=== PATIENT | male | born 1975 | race Caucasian/White ===

== ENCOUNTER 2016-08-26 06:55 | Day surgery (SDC) | payer BC ==
[~2016-08-26] VITALS: Ht 188 cm; Wt 61.2 kg
[~2016-08-26 06:55] MED LIST: B-COMPLEX W/VI1 EAC1 PO; CALCIUM ACETAT667 MG PO; COREG12.5 M1 PO; FOLIC ACID1 MG PO; HUMALOG100 UNIT/1 SC; KAYEXALATE15 GM/60 M PO; LANTUS 10100 UNITS/ SC; LASIX80 MG PO; LEXAPRO10 MG PO; NEPHRO-VITE,1 TABLET PO; NORVASC5 MG PO; OXAYDO5 MG PO; PROMETHAZINE HC25 M1 PO; PROTONIX40 MG PO; VITAMIN D22000 UNIT PO
[2016-08-26 08:02] LABS: HEMATOCRIT 26.3 % (38.0-50.0); MCH 30.4 PG (29.0-34.0); MCHC 31.9 G/DL (30.0-36.0); MCV 95.3 FL (86-99); MEAN PLAT.VOLUME 9.1 uM^3 (9.0-12.4); PLATELET COUNT 169 K/uL (156-360); RBC DIS.WIDTH-SD 47.8 % (39-53); RED BLOOD COUNT 2.76 M/uL (4.00-5.50)
[2016-08-26 08:04] VITALS: BP 109/72
[2016-08-26 08:05] VITALS: BP 109/72
[2016-08-26 08:17] LABS: ANION GAP 7 MEQ/L (2-14); CHLORIDE 99 MEQ/L (99-109); POTASSIUM 4.7 MEQ/L (3.7-5.4); SAMPLE HEMOLYSIS CHECK 0; SAMPLE ICTERIC CHECK 0; SAMPLE LIPEMIA CHECK 0; SODIUM 140 MEQ/L (136-147)
[2016-08-26 08:23] LABS: GFR ESTIMATE (CALCULATED) 11 mL/min/; GLUCOSE 229 mg/dL (70-99); UREA NITROGEN (BUN) 36 mg/dL (9-23)
[2016-08-26 08:58] LABS: METH RESISTANT S AUREUS PCR NEGATIVE (NEGATIVE); PROBE CHECK PASS; SPECIMEN PROCESSING CONTROL PASS
[2016-08-26] MEDS ORDERED: NORCO 5/3251 TABLET PO (10:32)
[2016-08-26 12:09] VITALS: BP 110/69
[2016-08-26 12:10] VITALS: BP 110/69
[2016-08-26 13:31] VITALS: BP 123/76
[2016-08-26 14:46] VITALS: BP 141/84
== END 2016-08-26 15:00 | disposition home or self-care (01) ==
LOC: SDC 06:55
PROVIDERS: Surgery
PROC: 0WHG43Z Insertion of Infusion Device into Peritoneal Cavity, Percutaneous Endoscopic Approach (ICD-10-PCS; principal; 2016-08-26)
DX: I12.0 Hypertensive chronic kidney disease with stage 5 chronic kidney disease or end stage renal disease (principal); E11.22 Type 2 diabetes mellitus with diabetic chronic kidney disease; N18.6 End stage renal disease; Z99.2 Dependence on renal dialysis; Q61.3 Polycystic kidney, unspecified; Z85.840 Personal history of malignant neoplasm of eye; Z84.1 Family history of disorders of kidney and ureter; Z82.49 Family history of ischemic heart disease and other diseases of the circulatory system; Z83.3 Family history of diabetes mellitus; Z80.9 Family history of malignant neoplasm, unspecified; Z82.3 Family history of stroke
CPT/HCPCS: 80048; 82948; 85027; 87641; 93005; C1750; J0330; J1100; J2405; J3010; S0020

== ENCOUNTER 2017-11-13 11:31 | Inpatient (IN) | payer BC ==
[~2017-11-13] VITALS: Ht 188 cm; Wt 91.9 kg
[~2017-11-13 11:31] MED LIST changes: -COREG12.5 M1 PO; +COREG25 M1 PO; +NORCO 5/3251 TABLET PO
[2017-11-13 14:41] VITALS: BP 150/95
[2017-11-13 16:46] LABS: HEMOGLOBIN 9.3 G/DL (12.5-16.6); MCH 29.9 PG (29.0-34.0); MCHC 32.1 G/DL (30.0-36.0); MCV 93.2 FL (86-99); PLATELET COUNT 184 K/uL (156-360); RBC DIS.WIDTH-CV 15.6 % (11.8-14.6); RBC DIS.WIDTH-SD 51.7 % (39-53); RED BLOOD COUNT 3.11 M/uL (4.00-5.50); WHITE BLOOD COUNT 8.2 K/uL (4.1-10.2)
[2017-11-13 16:56] LABS: CHLORIDE 94 MEQ/L (99-109); SODIUM 127 MEQ/L (136-147)
[2017-11-13 17:02] LABS: CREATININE 8.1 MG/DL (0.6-1.3); GFR ESTIMATE (CALCULATED) 8 mL/min/ (58.99-99999); GLUCOSE 189 mg/dL (70-99); UREA NITROGEN (BUN) 94 mg/dL (9-23)
[2017-11-13] MEDS ORDERED: DULOXETINE HCL60 MG PO (20:08)
[2017-11-13] MEDS ORDERED: LOSARTAN POTASS50 MG PO (20:10)
[2017-11-13] MEDS ORDERED: MODAFINIL200 MG PO (20:10)
[2017-11-13] MEDS ORDERED: CLONIDINE HCL0.1 MG PO (20:12)
[2017-11-13 22:53] VITALS: BP 160/93
[2017-11-14 05:39] LABS: HEMATOCRIT 30.6 % (38.0-50.0); HEMOGLOBIN 9.8 G/DL (12.5-16.6); MCH 29.6 PG (29.0-34.0); MCV 92.4 FL (86-99); RBC DIS.WIDTH-CV 15.6 % (11.8-14.6); RBC DIS.WIDTH-SD 51.8 % (39-53); RED BLOOD COUNT 3.31 M/uL (4.00-5.50); WHITE BLOOD COUNT 8.3 K/uL (4.1-10.2)
[2017-11-14 05:48] LABS: PLATELET COUNT 256 K/uL (156-360)
[2017-11-14 06:01] LABS: PTT 29.3 SEC (25-37)
[2017-11-14 06:29] LABS: CHLORIDE 95 MEQ/L (99-109); CREATININE 8.9 MG/DL (0.6-1.3); GFR ESTIMATE (CALCULATED) 7 mL/min/ (58.99-99999); GLUCOSE 219 mg/dL (70-99); POTASSIUM 5.3 MEQ/L (3.7-5.4); SODIUM 130 MEQ/L (136-147); UREA NITROGEN (BUN) 100 mg/dL (9-23)
[2017-11-14 07:00] VITALS: BP 140/93
[2017-11-14 11:25] VITALS: BP 169/99
[2017-11-14 15:33] VITALS: BP 140/89
[2017-11-15 07:34] LABS: CHLORIDE 94 MEQ/L (99-109); CREATININE 8.5 MG/DL (0.6-1.3); GFR ESTIMATE (CALCULATED) 7 mL/min/ (58.99-99999); GLUCOSE 115 mg/dL (70-99); PHOSPHORUS 6.6 mg/dL (2.5-4.9); POTASSIUM 4.9 MEQ/L (3.7-5.4); SODIUM 127 MEQ/L (136-147); UREA NITROGEN (BUN) 104 mg/dL (9-23)
[2017-11-15] MEDS ORDERED: CARVEDILOL25 MG PO (09:39)
[2017-11-15] MEDS ORDERED: AMLODIPINE BESY10 MG PO (09:39)
[2017-11-15] MEDS ORDERED: CLONIDINE HCL0.3 MG PO (09:39)
[2017-11-15] MEDS ORDERED: METOLAZONE5 MG PO (09:42)
[2017-11-15] MEDS ORDERED: FLORASTOR250 MG PO (09:42)
[2017-11-15] MEDS ORDERED: BACTROBAN OINTM22 GM BOTH NARES (09:43)
[2017-11-15] MEDS ORDERED: LEVEMIR100 UNIT/2 SC (09:43)
[2017-11-15 11:00] VITALS: BP 147/93
[2017-11-15] MEDS ORDERED: DICLOXACILLIN250 MG PO (12:13)
[2017-11-15 16:49] VITALS: BP 148/88
== END 2017-11-15 17:33 | disposition home or self-care (01) | DRG 981 ==
LOC: 5EAST 11:31 → ENRESERV 11:45 → 5EAST 11:47 → ENRESERV 14:15 → 5EAST 14:27
PROVIDERS: Family Medicine; Physician Assistant
PROC: 0WPG43Z Removal of Infusion Device from Peritoneal Cavity, Percutaneous Endoscopic Approach (ICD-10-PCS; principal; 2017-11-14)
PROC: 3E1M39Z Irrigation of Peritoneal Cavity using Dialysate, Percutaneous Approach (ICD-10-PCS; principal; 2017-11-14)
PROC: 0WHG43Z Insertion of Infusion Device into Peritoneal Cavity, Percutaneous Endoscopic Approach (ICD-10-PCS; principal; 2017-11-14)
DX: T85.71XA Infection and inflammatory reaction due to peritoneal dialysis catheter, initial encounter (principal); J15.9 Unspecified bacterial pneumonia; Y83.8 Other surgical procedures as the cause of abnormal reaction of the patient, or of later complication, without mention of misadventure at the time of the procedure; Z99.2 Dependence on renal dialysis; N18.6 End stage renal disease; Q61.3 Polycystic kidney, unspecified; B95.61 Methicillin susceptible Staphylococcus aureus infection as the cause of diseases classified elsewhere; E11.22 Type 2 diabetes mellitus with diabetic chronic kidney disease; E78.5 Hyperlipidemia, unspecified; L02.213 Cutaneous abscess of chest wall; I12.0 Hypertensive chronic kidney disease with stage 5 chronic kidney disease or end stage renal disease; D63.8 Anemia in other chronic diseases classified elsewhere; E87.1 Hypo-osmolality and hyponatremia; N25.81 Secondary hyperparathyroidism of renal origin; Z87.01 Personal history of pneumonia (recurrent); Z79.4 Long term (current) use of insulin
CPT/HCPCS: 80048; 82948; 84100; 85027; 85610; 85730; 87070; 87075; 87077; 87147; 87186; 87205; 93971; C1750; J0690; J0881; J1170; J1644; J1815; J2250; J2597; J3010; J7050; S0020